=== PATIENT | male | born 1965 | race Caucasian/White ===

== ENCOUNTER → 2020-10-06 16:00 | Outpatient (CLI) | payer OTHER, SELFPAY ==
[2020-10-09 09:21] LABS: Alanine Aminotransferase 39 U/L (12-78); Albumin Level 4.7 g/dl (3.5-5.0); Albumin/Globulin Ratio 1.4 (1.1-1.8); Alkaline Phosphatase 72 U/L (38-126); Anion Gap 12.4 mEq/L (5-15); Aspartate Amino Transferase 39 U/L (17-59); Bilirubin,Total 0.6 mg/dl (0.2-1.3); Blood Urea Nitrogen 15 mg/dl (9-20); Calcium 9.9 mg/dl (8.4-10.2); Carbon Dioxide 26 mmol/L (22.0-30.0); Chloride 105 mmol/L (98-107); Chol/HDL Ratio 4.3 (1-3.5); Cholesterol 213 mg/dl (140-200); Estimated Glomerular Filt Rate 78 ml/min (>60); GFR (African American) 94 ML/MIN (>60); Globulin 3.3 g/dL (1.3-3.2); Glucose 93 mg/dl (74-100); HDL Cholesterol 49 mg/dl (40-60); Potassium 4.4 mmoL/L (3.5-5.1); Sodium 139 mmol/L (136-145); Triglycerides 166 mg/dl (30-150); VLDL Cholesterol 33 mg/dL (0-40)
[2020-10-09 09:39] LABS: T4 (Thyroxine) 6.4 ug/dl (5.53-11.0)
[2020-10-09 09:52] LABS: Prostate Specific Ag Screen 0.7 ng/ml (0.0-4.0); Thyroid Stimulating Hormone 1.86 uIU/mL (0.465-4.68)
== END ==
PROVIDERS: Visit Provider Family Medicine
DX: E78.5 Hyperlipidemia, unspecified (principal); Z79.899 Other long term (current) drug therapy; Z12.5 Encounter for screening for malignant neoplasm of prostate
CPT/HCPCS: 80053; 80061; 84436; 84443; G0103

== ENCOUNTER → 2022-03-18 09:03 | Outpatient (CLI) | payer OTHER, SELFPAY | PROVIDERS: PCP Family Medicine; Visit Provider Internal Medicine | DX: Z01.812 Encounter for preprocedural laboratory examination (principal); Z20.822 Contact with and (suspected) exposure to COVID-19; Z13.810 Encounter for screening for upper gastrointestinal disorder | CPT/HCPCS: C9803; U0003; U0005 ==

== ENCOUNTER 2022-03-20 09:21 | Day surgery (SDC) | payer OTHER, SELFPAY ==
[2022-03-14 14:14] VITALS: BMI 27.1
[2022-03-20 09:41] VITALS: BP 143/68; PULSE 60; RESP 17; TEMP 36.3; O2SAT 98
--- NOTE | 2022-03-20 10:05 | HMH.ANESCL ---
[facility] Anesthesia Checklist - Patient Identification Patient Identification: Arm Band - Structural Data Admitted From: Home Planned Operative Procedure/s: EGD Consent for Planned Operative Procedure(s) Verified: Yes - NPO Status Verified Time NPO: 00:00 - Airway Assessment C-Spine Mobility Assessed: Yes TMJ Mobility Assessed: Yes Dentition: Edentulous - Neurological Assessment Level of Consciousness: Awake Hx Seizures: No Numbness or tingling in extremities: No - Anesthesia Plan Anesthesia Risk discussed: Yes Anesthesia Plan: Verified ASA Class: I Anesthesia Type: MAC [facility] History I have reviewed the patient's past medical history: Yes Medical History: Reports:: Gastroesophageal Reflux Disease(GERD), Hyperlipidemia Denies:: Cancer, Diabetes Mellitus Type 1, Diabetes Mellitus Type 2, Internal Pacemaker, MRSA, Seizures *Have you ever received a pneumonia vaccine?: No *Have you received a flu vaccine this season?: No Anesthesia experience/problems:: None Other Surgeries: No: Pacemaker Amputation: No Fractures: No - *Social History Smoking Status: Smoker, status unknown Tobacco Type: smokeless tobacco # Packs/Day (cigarettes): 1 Alcohol Intake: never Alcohol Intake Frequency:: a few times a week Substance Use Type: denies use *Occupational Status:: employed Housing: house Household Members: spouse *Travel in the last 8 weeks: None Family Hx:: No significant family history
[2022-03-20 10:24] VITALS: O2SAT 98
--- NOTE | 2022-03-20 10:35 | HMH.SCOPE ---
- Procedure: Date: 03/20/22 Patient Date of :: 1965 Procedure Performed:: EGD Indications:: The patient is a 56 year old with chronic GERD and dysphagia symptom. Performing Provider:: Tobias Davis MD Referring Provider:: Devon Davies MD Sedation:: See RN records Procedure:: The gastroscope was gently passed through the incisoral orifice into the oral cavity and under direct visualization the esophagus was intubated. The endoscope was passed down the esophagus, through the stomach, and into the duodenum. Color, texture, mucosa, and anatomy of the esophagus, stomach, and duodenum were carefully examined with the scope. Findings:: Oropharynx: normal Esophagus: normal EG Junction: Non obstructing schatzki ring. Mild esophagitis. Cold forceps used to break apart ring. Dilatation performed with 20 mm tts balloon. Cardia: small hiatal hernia Fundus: normal Body: normal Antrum: normal Duodenal bulb: normal Duodenum (second and third portion): normal Impression: 1. Mild distal esophagitis 2. Mild schatzki ring (non-obstructing) 3. Small hiatal hernia Recommendations:: Await pathology results Continue pantoprazole 40 mg once daily Return for EGD with esophageal dilatation as needed Complications:: None Estimated blood obtained (mL): 0
[2022-03-20 10:37] VITALS: BP 104/63; PULSE 86; RESP 18; TEMP 36.2; O2SAT 95
[2022-03-20 10:47] VITALS: BP 105/63; PULSE 67; RESP 18; O2SAT 98
[2022-03-20 10:58] VITALS: BP 118/73; PULSE 70; RESP 18; O2SAT 100
[2022-03-20 11:03] VITALS: BP 122/79; PULSE 70; RESP 18; O2SAT 100
== END 2022-03-20 11:04 | disposition home or self-care (01) ==
LOC: OUTP 09:23
PROVIDERS: PCP Family Medicine; Visit Provider Internal Medicine
PROC: 0DJ08ZZ Inspection of Upper Intestinal Tract, Via Natural or Artificial Opening Endoscopic (ICD-10-PCS; CPT 43235; principal; 2022-03-20 11:00)
DX: K21.9 Gastro-esophageal reflux disease without esophagitis (principal); R13.10 Dysphagia, unspecified; E78.5 Hyperlipidemia, unspecified
CPT/HCPCS: 43249; C1726